=== PATIENT | male | born 1935 | race Caucasian/White ===

== ENCOUNTER → 2016-11-23 | Outpatient (REF) | payer MEDICARE, OTHER ==
[~2016-11-23] MED LIST: ACET325T38 PO; CALC-656 PO; ENXP100I SC; GLMP2T PO; HCT25T PO; HYDR-3702 PO; INUL197. PO; LACT1CAP62 PO; LEVO50TA10 PO; METAMUCIL1 PKT PO; METF500T PO; PSYL1PAC10 PO; WARF5TAB PO
== END ==
LOC: LAB 13:57
PROVIDERS: ATTEND Family Medicine
DX: Z51.81 Encounter for therapeutic drug level monitoring (principal); Z79.01 Long term (current) use of anticoagulants; I48.2 Chronic atrial fibrillation
CPT/HCPCS: 85610

== ENCOUNTER → 2016-12-07 | Outpatient (REF) | payer MEDICARE, OTHER | LOC: LAB 13:56 | PROVIDERS: ATTEND Family Medicine | DX: Z51.81 Encounter for therapeutic drug level monitoring (principal); Z79.01 Long term (current) use of anticoagulants | CPT/HCPCS: 85610 ==

== ENCOUNTER → 2016-12-21 | Outpatient (REF) | payer MEDICARE, OTHER | LOC: LAB 14:41 | PROVIDERS: ATTEND Family Medicine | DX: Z51.81 Encounter for therapeutic drug level monitoring (principal); Z79.01 Long term (current) use of anticoagulants | CPT/HCPCS: 85610 ==

== ENCOUNTER → 2017-01-31 | Outpatient (REF) | payer MEDICARE, OTHER | LOC: LAB 13:50 | PROVIDERS: ATTEND Family Medicine | DX: Z51.81 Encounter for therapeutic drug level monitoring (principal); Z79.01 Long term (current) use of anticoagulants | CPT/HCPCS: 85610 ==

== ENCOUNTER → 2017-02-14 | Outpatient (REF) | payer MEDICARE, OTHER | LOC: LAB 12:45 | PROVIDERS: ATTEND Family Medicine | DX: Z51.81 Encounter for therapeutic drug level monitoring (principal); Z79.01 Long term (current) use of anticoagulants; I48.2 Chronic atrial fibrillation | CPT/HCPCS: 85610 ==

== ENCOUNTER → 2017-03-14 | Outpatient (REF) | payer MEDICARE, OTHER | LOC: LAB 15:40 | PROVIDERS: ATTEND Family Medicine | DX: Z51.81 Encounter for therapeutic drug level monitoring (principal); Z79.01 Long term (current) use of anticoagulants; I48.2 Chronic atrial fibrillation | CPT/HCPCS: 85610 ==

== ENCOUNTER → 2017-03-28 | Outpatient (REF) | payer MEDICARE, OTHER | LOC: LAB 13:02 | PROVIDERS: ATTEND Family Medicine | DX: Z51.81 Encounter for therapeutic drug level monitoring (principal); Z79.01 Long term (current) use of anticoagulants | CPT/HCPCS: 85610 ==